=== PATIENT | female | born 1970 | race Caucasian/White ===

== ENCOUNTER 2021-03-22 08:53 | Observation (INO) ==
--- NOTE | 2021-03-22 12:22 | DR.H&P ---
H&P - History & Physical for Day of: H&P Date: 03/22/21 - Chief Complaint Chief Complaint: Intractable low back pain - History of Present Illness History of Present Illness: The patient is a 50-year-old white female who [facility] complaints of intractable back pain. States that is to the point that she cannot walk. States that the pain is shutting down both legs. Patient does have history of back surgery. States that she has taken her [place] as well as received toradol in [place] injections with no improvement of symptoms. States that it has been several years since she had an MRI. States the pain is causing her to lose her balance. Patient denies any acute trauma recently. Patient does complain of redness in [place] to her left eye. States started yesterday. Patient states that she thinks it's pink eye. Patient has one to her left elbow that is still healing. States they were not able to do a skin graft. Patient does have it wrapped up. Patient denies any other complaints. - Past Medical History Past Medical History: Depression, GERD, Headaches, Hypertension Additional Medical History: Meniere's Disease, Sciatica, Chronic joint pain - Past Surgical History Surgical History: Ortho Surgery (L3-L5 Fusion) Additional Surgical History: gastric bypass, appendectomy, ovarian cystectomy - Family History Family Medical History: Diabetes Mellitus, Coronary Artery Disease, Hypertension - Social History Does patient currently use any type of tobacco product: No Have you used tobacco products in the last 12 months: No Type of Tobacco Use: None Does any household member use tobacco: No Alcohol Use: None Drug Use: Prescription Drugs Risks, benefits, and alternatives of opioids discussed: Yes Prescription drug monitoring program results: PDMP reviewed and no concerns identified - Review of Systems Constitutional: Malaise Eyes: Conjunctivae Inflammation (left) ENT: No Symptoms Reported Respiratory: No Symptoms Reported Cardiovascular: No Symptoms Reported Gastrointestinal: No Symptoms Reported Genitourinary: No Symptoms Reported Musculoskeletal: Back Pain Skin: Wound (left elbow) Neurological: See HPI, Weakness (BLE) Oriented: Normal Eyes: Discharge (Clear), Redness (Left) Ear: Normal Nose: Normal Throat: Normal Respiratory: Clear Throughout Cardiovascular: Normal : Normal Auscultation: Bowel Sounds: Normal Palpation: Normal Tenderness: Normal Skin: Normal Musculoskeletal: Back:Lumbar, Tender, Deformity, Motor Deficit Psychiatric: Depression Mood Description: Calm Affect: Flat Speech Pattern: Clear - Assessment/Plan (1) Low back pain Qualifiers: Chronicity: acute Back pain laterality: bilateral Sciatica presence: with sciatica Sciatica laterality: bilateral sciatica Qualified Code(s): M54.42 - Lumbago with sciatica, left side; M54.41 - Lumbago with sciatica, right side Narrative Support Text: acute on chronic Status: Acute Plan: IV Steroids, Toradol and MRIs (2) Lumbar radiculopathy, acute Status: Acute Plan: IV steroids, toradol, pain mgmt (3) Open wound of upper extremity with complication Status: Acute (4) Obesity Status: Acute (5) Hypertension Qualifiers: Hypertension type: essential hypertension Qualified Code(s): I10 - Essential (primary) hypertension Status: Acute Plan: Home meds - Allergies Allergies/Adverse Reactions: Allergies Allergy/AdvReac Type Severity Reaction Status Date / Time clindamycin Allergy Intermediate Verified 03/22/21 12:21 codeine Allergy Verified 03/22/21 12:21 Penicillins Allergy Verified 03/22/21 12:21 Sulfa (Sulfonamide Allergy Verified 03/22/21 12:21 Antibiotics) [SULFA] fluoxetine [From Prozac] AdvReac Verified 03/22/21 12:21 sertraline [From Zoloft] AdvReac Verified 03/22/21 12:21
[2021-03-22] MEDS ORDERED: TORADOL 30 MG VIAL IVP PRN (14:30)
[2021-03-22] MEDS ORDERED: NORCO 5/325 MG TAB PO PRN (14:30)
[2021-03-22 15:27] LABS: ALANINE AMINOTRANSFERASE 15 Units/L (12-78); ALBUMIN 3.1 g/dL (3.4-5.0); ALKALINE PHOSPHATASE 190 Units/L (46-116); ASPARTATE AMINO TRANSFERASE 12 Units/L (15-37); BLOOD UREA NITROGEN 20 mg/dL (7-18); CALCIUM 8.9 mg/dL (8.5-10.1); CARBON DIOXIDE 30.7 mmol/L (21-32); CHLORIDE 105 mmol/L (98-107); COR CA(FOR HYPOALB) 9.6 mg/dL (8.5-10.1); CREATININE 1.71 mg/dL (0.55-1.02); SODIUM 141 mmol/L (136-145); TOTAL PROTEIN 7.3 g/dL (6.4-8.2); eGFR NON BLACK RACES 34 (>60)
[2021-03-22] MEDS: NS 1000 ML 1,000 ML IV SCH (15:29)
[2021-03-22] MEDS: SOLU-Medrol 125 MG VIAL IVP SCH ×2 (15:30→21:02)
--- NOTE | 2021-03-22 15:35 | RAD ---
HISTORYSOB, LBPSTUDYCHEST x-ray, 1 VIEWCOMPARISONNoneFINDINGSThe trachea is midline. The cardiac silhouette is unremarkable .Lungs appear clear. No pneumothorax or pleural effusion is seen.No acute bony abnormality is seen.IMPRESSIONNo acute cardiopulmonary abnormality is seen.Electronically signed by: Chuck Amaral (Mar 22, 2021 15:32:54)
[2021-03-22 15:45] VITALS: BMI 48.4
[2021-03-22 15:56] LABS: BASOPHILS # (AUTO) 0.1 X10^3/uL (0.0-0.1); BASOPHILS % (AUTO) 0.6 % (0.2-1.0); EOSINOPHILS # (AUTO) 0.9 x10^3/uL (0.0-0.2); EOSINOPHILS % (AUTO) 8.9 % (0.9-2.9); HEMATOCRIT 34.8 % (36.0-47.0); HEMOGLOBIN 11.5 g/dL (12.0-16.0); LYMPHOCYTES # (AUTO) 2.2 X10^3/uL (1.3-2.9); LYMPHOCYTES % (AUTO) 20.9 % (21.0-51.0); MEAN CORPUSCULAR HGB CONC 33.1 g/dL (33.0-35.0); MEAN CORPUSCULAR VOLUME 81.5 fL (80.0-100.0); MEAN PLATELET VOLUME 6.4 fL (7.4-11.0); MONOCYTES # (AUTO) 0.6 x10^3/uL (0.3-0.8); MONOCYTES % (AUTO) 5.9 % (0.0-13.0); NEUTROPHILS # (AUTO) 6.7 x10^3/uL (2.2-4.8); NEUTROPHILS % (AUTO) 63.7 % (42.0-75.0); PLATELET COUNT 218 X10^3/uL (150.0-450.0); RED BLOOD COUNT 4.27 X10^6/uL (3.5-5.4); RED CELL DISTRIBUTION WIDTH 17.1 % (11.6-16.5); WHITE BLOOD COUNT 10.5 X10^3/uL (3.6-10.0)
[2021-03-22] MEDS ORDERED: TORADOL 15 MG VIAL IVP PRN (17:00)
[2021-03-22] MEDS ORDERED: KLONOPIN TAB 1 MG PO PRN (17:34)
[2021-03-22] MEDS ORDERED: PREDNISONE TAB 10 MG PO SCH (18:00)
[2021-03-22] MEDS: MORPHINE SULFATE INJ 2 MG INJ IVP PRN (20:10)
[2021-03-22] MEDS ORDERED: REQUIP PO SCH (21:00)
[2021-03-22] MEDS ORDERED: ZOCOR TAB 10 MG PO SCH (21:00)
[2021-03-22] MEDS: K-DUR TAB 20 MEQ PO SCH (21:01)
[2021-03-22] MEDS: FLEXERIL TAB 10 MG PO SCH (21:01)
[2021-03-23] MEDS: NS 1000 ML 1,000 ML IV SCH (04:37)
[2021-03-23] MEDS: SOLU-Medrol 125 MG VIAL IVP SCH ×2 (05:13→14:49)
[2021-03-23 06:16] LABS: BASOPHILS % (AUTO) 0.1 % (0.2-1.0); HEMATOCRIT 32.4 % (36.0-47.0); HEMOGLOBIN 10.7 g/dL (12.0-16.0); LYMPHOCYTES # (AUTO) 0.6 X10^3/uL (1.3-2.9); LYMPHOCYTES % (AUTO) 11.7 % (21.0-51.0); MEAN CORPUSCULAR HEMOGLOBIN 26.9 pg (27.0-34.0); MEAN CORPUSCULAR HGB CONC 33.1 g/dL (33.0-35.0); MEAN CORPUSCULAR VOLUME 81.4 fL (80.0-100.0); MEAN PLATELET VOLUME 6.8 fL (7.4-11.0); MONOCYTES # (AUTO) 0 x10^3/uL (0.3-0.8); MONOCYTES % (AUTO) 0.9 % (0.0-13.0); NEUTROPHILS # (AUTO) 4.7 x10^3/uL (2.2-4.8); NEUTROPHILS % (AUTO) 87.3 % (42.0-75.0); PLATELET COUNT 181 X10^3/uL (150.0-450.0); RED BLOOD COUNT 3.99 X10^6/uL (3.5-5.4); RED CELL DISTRIBUTION WIDTH 16.7 % (11.6-16.5); WHITE BLOOD COUNT 5.4 X10^3/uL (3.6-10.0)
[2021-03-23 06:55] LABS: ALBUMIN 2.8 g/dL (3.4-5.0); CALCIUM 8.8 mg/dL (8.5-10.1); CARBON DIOXIDE 28.3 mmol/L (21-32); COR CA(FOR HYPOALB) 9.8 mg/dL (8.5-10.1); CREATININE 1.62 mg/dL (0.55-1.02); TOTAL PROTEIN 6.8 g/dL (6.4-8.2)
[2021-03-23] MEDS ORDERED: MOBIC TAB 15 MG PO SCH (09:00)
[2021-03-23] MEDS ORDERED: MAXZIDE 37.5/25 MG PO SCH (09:00)
[2021-03-23] MEDS ORDERED: SINGULAIR TAB 10 MG PO SCH (09:00)
[2021-03-23] MEDS ORDERED: NexIUM PO SCH (09:00)
[2021-03-23] MEDS ORDERED: LASIX PO SCH (09:00)
[2021-03-23] MEDS: K-DUR TAB 20 MEQ PO SCH (09:33)
[2021-03-23] MEDS: FLEXERIL TAB 10 MG PO SCH (09:33)
[2021-03-23] MEDS ORDERED: XANAX PO ONE (10:33)
[2021-03-23] MEDS: MORPHINE SULFATE INJ 2 MG INJ IVP PRN (15:25)
[2021-03-23 16:23] VITALS: BP 117/64
== END 2021-03-23 17:00 | disposition home or self-care (01) ==
LOC: OBS → MED/SURG 14:21
PROVIDERS: ADMIT Internal Medicine; ATTEND Internal Medicine
DX: L89.022 Pressure ulcer of left elbow, stage 2; M54.89 Other dorsalgia; Z20.822 Contact with and (suspected) exposure to COVID-19; M54.16 Radiculopathy, lumbar region; K21.9 Gastro-esophageal reflux disease without esophagitis; I10 Essential (primary) hypertension; R94.4 Abnormal results of kidney function studies; E66.09 Other obesity due to excess calories; M54.42 Lumbago with sciatica, left side; M54.41 Lumbago with sciatica, right side; R26.89 Other abnormalities of gait and mobility; R53.1 Weakness